=== PATIENT | male | born 1950 | race Caucasian/White ===

== ENCOUNTER → 2017-07-07 | Outpatient (CLI) | payer OTHER ==
[~2017-07-07] MED LIST: ASPIRIN CHEWABL81 MG PO; BRILINTA 90 MG90 MG PO; GLUCOPHAGE 500500 MG GT; LIPITOR TAB 2020 MG PO; LOPRESSOR 25 MG25 MG PO; OMEGA 3 FISH O1 EACH PO; PRILOSEC OTC20 MG PO; TRAMADOL HCL50 MG PO
== END ==
LOC: HEART 5 07-06 07:45
DX: I10 Essential (primary) hypertension (principal)
CPT/HCPCS: 78452; A9502; J2785